=== PATIENT | male | born 1960 ===

== ENCOUNTER 2016-11-03 16:39 | Observation (INO) | payer MEDICAID ==
[~2016-11-03] VITALS: Ht 185.4 cm; Wt 176.6 kg
[~2016-11-03 16:39] MED LIST: CYCL10TA9 PO
[2016-11-03 16:41] VITALS: BP 145/96; PULSE 106; RESP 18; O2SAT 98
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
[2016-11-03] MEDS ORDERED: 0.9% Sodium Chloride 1,000 ML IV ONE (17:24)
[2016-11-03] MEDS ORDERED: Ondansetron 2 mg/mL 2 mL Inj IVPUSH ONE (17:25)
[2016-11-03] MEDS ORDERED: HYDROmorphone 1 mg/mL Inj IVPUSH ONE (17:25)
[2016-11-03 17:32] LABS: BASOPHILS % (AUTO) 0.2 % (0-3); EOSINOPHILS % (AUTO) 3.4 % (0-5); MONOCYTES % (AUTO) 4.8 % (4-12); Mean Corpuscular Hemoglobin 26.1 pg (27.0-35.0); Mean Corpuscular Volume 77.9 fL (81-100); NEUTROPHILS % (AUTO) 83.8 % (40-74); Platelet Count 270 bil/L (150-400)
[2016-11-03 17:53] LABS: TROPONIN T < 0.010 ug/L (0.0-0.011)
[2016-11-03 17:55] LABS: Lipase 20 U/L (13-60); Magnesium 1.9 mg/dL (1.6-2.6)
[2016-11-03] MEDS: HYDROmorphone 1 mg/mL Inj IVPUSH PRN ×2 (17:58→20:13)
--- NOTE | 2016-11-03 18:48 | DRSVH ---
PROCEDURE: CT ABDOMEN AND PELVIS WITH CONTRAST (PNL-7102) INDICATIONS: belly pain TECHNIQUE: After the administration of intravenous contrast, 5 mm thick sections acquired from the diaphragm to the symphysis. 5 mm coronal and sagittal reformats were acquired. For radiation dose reduction, the following was used: automated exposure control, adjustment of mA and/or kV according to patient siz e. COMPARISON: [facility], CT, ABD/PELVIS W/CON (PN), 09/23/2005, 12:15. FINDINGS: Image quality: Limited by patient body habitus. ABDOMEN: Lung bases: Lung bases are clear. Heart size is normal. Solid organs: Liver and spleen are normal in size and enhancement. Gallbladder contains gallstones in the gallbladder neck.. Biliary system is non dilated. Pancreas enhances normally. No adrenal no dules. Kidneys demonstrate normal size and enhancement, without hydronephrosis. Peritoneum and bowel: Scattered diverticuli noted in the sigmoid colon without evidence of diverticu litis.. No free fluid or air. Nodes and vessels: No retroperitoneal or mesenteric adenopathy by size criteria. Aorta and inferior vena cava are normal in size. Miscellaneous: Large ventral hernia is noted which contains multiple loops of large and small bowel. Several of the loops of herniated small bowel are dilated up to 3.5 cm in diameter. PELVIS: Genitourinary: Urinary bladder diverticulum is noted. There is wall thickening and mild inflammatio n adjacent to the bladder diverticulum. Miscellaneous: No inguinal hernias or adenopathy. Atrophy pelvic masses are noted possibly related t o denervation injury. Bones: No suspicious bony lesions. No vertebral body compression fractures. Post surgical changes c ompatible with left acetabular fracture ORIF noted. Old left obturator ring fracture noted. Bilater al hip osteoarthritic degenerative changes are noted. Spine degenerative disc disease and facet arth ropathy are noted. IMPRESSION: 1. Large hiatal hernia which contains multiple loops of large and small bowel. Several of the herni ated small bowel loops are dilated suspicious for early or partial small bowel obstruction. 2. Colonic diverticulosis without evidence of diverticulitis. 3. Large urinary bladder diverticulum. Wall thickening and mild adjacent inflammatory changes are n oted in the bladder diverticulum. Findings may related to infection or neoplastic process. Recommen d correlation with clinical urinalysis findings as well as urology consultation. 4. No free fluid or air. 5. Postsurgical changes. 6. Cholelithiasis. Dictated by: Kelly Sky MD, PhD on 11/03/2016 at 18:46 Approved by: Kelly Sky MD, PhD on 11/03/2016 at 18:46
[2016-11-03] MEDS ORDERED: Alum-Mag Hydrox-Simeth 30 mL Suspension PO PRN (20:30)
[2016-11-03] MEDS ORDERED: Polyethylene Glycol (PEG) 17 Gm Powder PO PRN (20:30)
[2016-11-03 20:59] VITALS: BP 133/83; PULSE 110; RESP 20; O2SAT 97
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
[2016-11-03] MEDS: 0.9% Sodium Chloride 1,000 ML IV SCH (22:47)
[2016-11-03] MEDS: Acetaminophen IV 1,000 MG in IV Premix 1 EACH IV PRN (22:48)
[2016-11-03] MEDS: Ondansetron 2 mg/mL 2 mL Inj IVPUSH PRN (22:59)
[2016-11-04] MEDS: Heparin 5,000 Unit/mL Inj SUBQ SCH ×3 (00:47→18:05)
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
--- NOTE | 2016-11-04 02:15 | NUR ---
Med Rec Not taking any medications at this time. No known allergies.
[2016-11-04] MEDS: Ondansetron 2 mg/mL 2 mL Inj IVPUSH PRN ×3 (02:31→18:06)
[2016-11-04] MEDS: HYDROmorphone 1 mg/mL Inj IVPUSH PRN ×2 (02:31→10:53)
[2016-11-04 05:02] VITALS: BP 109/71; PULSE 90; RESP 18; O2SAT 95
[2016-11-04 06:38] LABS: APPEARANCE,URINE HAZY (CLEAR,HAZY); COLOR,URINE YELLOW (YELLOW); OCCULT BLOOD,URINE NEGATIVE (NEGATIVE); PH,URINE 6.5 (5.0-8.0); UROBILINOGEN,URINE NORMAL (NORMAL)
[2016-11-04] MEDS: 0.9% Sodium Chloride 1,000 ML IV SCH ×2 (07:43→16:04)
[2016-11-04] MEDS: Acetaminophen IV 1,000 MG in IV Premix 1 EACH IV PRN (08:37)
[2016-11-04 09:03] VITALS: BP 124/66; PULSE 82; RESP 21; O2SAT 96
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
[2016-11-04 13:31] VITALS: BP 122/81; PULSE 77; RESP 20; O2SAT 98
--- NOTE | 2016-11-04 14:27 | NUR ---
Social Work: Screening Data: Pt is a 56 y/o male admitted for gastoenteritis, incomplete SBO. Pt's PCP is Georgina Squires. Pt's Insurance is [facility] medicaid. EMR reviewed, pt discussed in round. No BOLT CUTTER needs identified at this time. BOLT CUTTER will continue to follow if needs arise. Assessment: Pt who is independent at baseline. Plan: Pt will likely d/c home via POV when medically stable. No BOLT CUTTER needs identified at this time. BOLT CUTTER will continue to follow if needs arise. LUISITO Mora
[2016-11-04] MEDS: Vancomycin 125 mg Oral Capsule PO SCH ×2 (14:34→19:52)
[2016-11-04 16:37] VITALS: BP 129/84; PULSE 86; RESP 22; O2SAT 96
--- NOTE | 2016-11-04 17:53 | NUR ---
C-diff/Nausea Patient C-diff specimen came back positive. Oral Vanco started. Diarrhea x 2 this shift. Patient having 1 incident of nausea/dry heaves this am. Zofran effective.
[2016-11-04 21:08] VITALS: BP 129/84; PULSE 83; RESP 20; O2SAT 94
[2016-11-05] MEDS: Heparin 5,000 Unit/mL Inj SUBQ SCH ×2 (00:52→08:09)
[2016-11-05] MEDS: 0.9% Sodium Chloride 1,000 ML IV SCH ×3 (00:53→11:55)
[2016-11-05] MEDS: Vancomycin 125 mg Oral Capsule PO SCH ×3 (02:56→14:37)
[2016-11-05] MEDS: Ondansetron 2 mg/mL 2 mL Inj IVPUSH PRN ×2 (02:56→10:34)
[2016-11-05] MEDS ORDERED: HYDROmorphone 1 mg/mL Inj IM ONE (03:25)
[2016-11-05 04:15] VITALS: BP 121/80; PULSE 77; RESP 20; O2SAT 94
[2016-11-05 05:59] LABS: BASOPHILS % (AUTO) 0.2 % (0-3); EOSINOPHILS % (AUTO) 6.7 % (0-5); MONOCYTES % (AUTO) 15.6 % (4-12); Mean Corpuscular Hemoglobin 25.9 pg (27.0-35.0); Mean Corpuscular Volume 79.3 fL (81-100); NEUTROPHILS % (AUTO) 49.6 % (40-74); Platelet Count 191 bil/L (150-400)
[2016-11-05 06:25] LABS: Phosphorus 2.7 mg/dL (2.5-4.9)
--- NOTE | 2016-11-05 10:25 | PROG NOTE ---
[address] [address] PROGRESS NOTE PATIENT: LEONCIO MCCONNELL : 1960 MR#: [id number] ADMIT: 11/03/2016 JOB ID: [id number] DATE: 11/05/2016 SUBJECTIVE: The patient's frequency of bowel movements and emesis has decreased and so has his abdominal pain and tenderness over the hernia. His C. difficile studies did come back and he is on treatment for that. There is no sign of acute small bowel obstruction or incarceration in this large chronic ventral hernia. General Surgery will sign off. He should follow up with either General Surgery Clinic and/or the hernia specialist down at the [facility]. I think that he should have this hernia repaired, though some consideration should be given to having preoperative weight loss, whether that be through medical management or consideration of bariatric surgery given his body mass index of 51. General Surgery will sign off this hospitalization.
[2016-11-05] MEDS ORDERED: VANC125C3 PO (13:26)
[2016-11-05 14:49] VITALS: BP 132/87; PULSE 80; RESP 20; O2SAT 94
--- NOTE | 2016-11-05 15:29 | PCM.DIMED ---
Fior Connelly DO 11/05/16 1403: Discharge Instructions Date of Service Nov 05, 2016 Dates of Hospitalization Nov 03, 2016 at 21:18 Discharge Diagnosis Discharge Diagnosis C. difficile infection, Suspected pSBO Large ventral hernia Urinary bladder diverticulum, Morbid obesity, BMI > 50 Medication Instructions You will need to take the Vancomycin for 14 days. Diet Heart Healthy Activity No restrictions Call your provider Fever or Chills, Shortness of breath, Bleeding, Chest pain, Vomitting, Excessive diarrhea, Weakness (unilateral) Patient Instructions You will need to take the Vancomycin for the next 14 days. You need to follow up with your Primary Care Provider You should follow up with General Surgery about your hernia. Follow-up Provider: [facility] Follow-up with PCP in: 1 week Rafael King MD 11/06/16 1124: Fior Connelly DO Nov 05, 2016 14:03 Rafael King MD Nov 06, 2016 11:24
--- NOTE | 2016-11-05 15:50 | NUR ---
Discharge Patient departed unit via wheelchair accompanied by staff and spouse. Prior to discharge, patient displaying adequate urination, respiratory function and nutritional intake is good. Patient independent in room and has an orthopedic boot for Lt fibula fracture. Discharge instructions/medications reviewed with patient and spouse prior to discharge. All questions addressed. Patient belongings, discharge instructions and prescriptions in hand. Patient continues to have diarrhea which should improve with his antibiotic.
--- NOTE | 2016-11-05 16:06 | NUR ---
Social Work: D/C Data: Pt is on day 2 of hospitalization. EMR reviewed. Pt has d/kristal from the hospital. No d/c planning needed. Assessment: Pt who is independent at baseline. Plan: Pt discharged home via POV. No d/c planning needed. LUISITO Mora
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
== END 2016-11-05 15:50 | disposition home or self-care (01) ==
LOC: SED 16:39 → MPC 20:21 → UNDOADMIN 20:21 → MPC 20:39 → INTOOBSV 21:18
PROVIDERS: ADMIT Internal Medicine; ATTEND Internal Medicine
DX: K43.2 Incisional hernia without obstruction or gangrene (principal); A04.7 Enterocolitis due to Clostridium difficile; N32.3 Diverticulum of bladder; I10 Essential (primary) hypertension; E66.01 Morbid (severe) obesity due to excess calories; K46.9 Unspecified abdominal hernia without obstruction or gangrene; K57.30 Diverticulosis of large intestine without perforation or abscess without bleeding; K80.20 Calculus of gallbladder without cholecystitis without obstruction; Z68.43 Body mass index [BMI] 50.0-59.9, adult
CPT/HCPCS: 36415; 74177; 80048; 80053; 81000; 82308; 83605; 83690; 83735; 84100; 84484; 85025; 87086; 87088; 87493; 93005; 96361; 96372; 96374; 96375; 96376; 99285; G0378; J0131; J1170; J1644; J2405; J7030; Q9967

== ENCOUNTER 2017-07-06 13:07 | Emergency (ER) | payer MEDICAID, OTHER ==
[~2017-07-06] VITALS: Ht 185.4 cm; Wt 172.7 kg
[~2017-07-06 13:07] MED LIST changes: -CYCL10TA9 PO; +VANC125C3 PO
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
[2017-07-06 13:12] VITALS: BP 134/88; PULSE 94; RESP 20; O2SAT 97
== END 2017-07-06 13:46 ==
LOC: SED 13:07
DX: Z02.89 Encounter for other administrative examinations (principal); I10 Essential (primary) hypertension; Z87.81 Personal history of (healed) traumatic fracture; Z96.649 Presence of unspecified artificial hip joint; Z98.890 Other specified postprocedural states

== ENCOUNTER 2017-07-06 17:45 | Emergency (ER) | payer MEDICAID, OTHER ==
[~2017-07-06] VITALS: Ht 185.4 cm; Wt 175.0 kg
[2017-07-06 18:00] VITALS: BP 150/85; PULSE 94; RESP 22; O2SAT 98
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
[2017-07-06 18:22] LABS: BASOPHILS % (AUTO) 0.8 % (0-3); EOSINOPHILS % (AUTO) 4.8 % (0-5); MONOCYTES % (AUTO) 8.6 % (4-12); Mean Corpuscular Hemoglobin 28.3 pg (27.0-35.0); NEUTROPHILS % (AUTO) 59.9 % (40-74); Platelet Count 213 bil/L (150-400)
[2017-07-06 18:36] LABS: INR 0.95 ratio
--- NOTE | 2017-07-06 19:49 | DRSVH ---
PROCEDURE: CT ANGIO CHEST PULMONARY EMBOLISM ([id number]) INDICATIONS: sob ?pe TECHNIQUE: After the administration of intravenous contrast, 2 mm thick sections acquired from the pulmonary api real to the posterior costophrenic angles. 3-dimensional maximum intensity projection (MIP) coronal a nd sagittal reformats were then acquired through the thorax. For radiation dose reduction, the follo wing was used: automated exposure control, adjustment of mA and/or kV according to patient size. COMPARISON: None. FINDINGS: Image quality: There is suboptimal opacification of distal branches of the pulmonary arteries. Pulmonary arteries: Pulmonary arteries are normal in size, and demonstrate no intraluminal filling d efects to suggest central pulmonary embolism. Lungs and pleura: Lungs are clear. No pleural effusions or pneumothorax. Central and peripheral ai rways are patent. Mediastinum: Heart size is normal, without pericardial effusion. No mediastinal or hilar adenopathy . Thoracic aorta is normal in caliber and enhancement. Esophagus is normal in caliber, without hiat al hernia. Bones and chest wall: No suspicious bony lesions. Ribs and thoracic spine appear intact throughout. Thyroid gland is unremarkable. No axillary or supraclavicular adenopathy. Abdomen: Visualized upper abdominal solid organs appear normal in the early arterial phase of enhanc ement. IMPRESSION: 1. Heterogeneous appearance of distal branches of the pulmonary arteries bilaterally. It is noted paulette t it is a suboptimal opacification of the pulmonary vascular system as well as artifact secondary to patient body habitus. These areas are considered indeterminate on the basis of this examination and a reas of thrombosis cannot be definitively excluded within the non-central pulmonary vessels. Dictated by: Otilia Carias M.D. on 07/06/2017 at 19:44 Approved by: Otilia Carias M.D. on 07/06/2017 at 19:47
[2017-07-06 20:40] VITALS: BP 139/63; PULSE 97; RESP 18; O2SAT 94
== END 2017-07-06 20:30 ==
LOC: SED 17:45
DX: I80.01 Phlebitis and thrombophlebitis of superficial vessels of right lower extremity (principal); R06.02 Shortness of breath; R05 Cough; I10 Essential (primary) hypertension; Z87.81 Personal history of (healed) traumatic fracture; Z96.649 Presence of unspecified artificial hip joint; Z98.890 Other specified postprocedural states
CPT/HCPCS: 36415; 71275; 80053; 85025; 85610; 99284; G0480; Q9967